=== PATIENT | female | born 1985 | race Caucasian/White ===

== ENCOUNTER 2020-02-24 06:12 | Day surgery (SDC) | payer OTHER ==
[2020-02-24] MEDS ORDERED: Lidocaine 1% with EPINEPHrine 1:100,000 50 ML MDV ONE (06:36)
[2020-02-24] MEDS ORDERED: Bupivacaine 0.5% 50 ML MDV ONE (06:36)
[2020-02-24] MEDS ORDERED: Sodium Chloride 0.9% 1,000 ML IV SCH (07:00)
[2020-02-24] MEDS ORDERED: fentaNYL 250 MCG/5 ML SDV ONE ×3 (07:27→10:52)
[2020-02-24] MEDS ORDERED: Ondansetron 4 MG/2 ML SDV ONE (07:28)
[2020-02-24] MEDS ORDERED: Rocuronium 50 MG/5 ML Vial ONE (07:28)
[2020-02-24] MEDS ORDERED: Propofol 200 MG/20 ML SDV ONE (07:28)
[2020-02-24] MEDS ORDERED: Dexamethasone 4 MG/ML SDV ONE (07:28)
[2020-02-24] MEDS ORDERED: Neostigmine Methylsulfate 1 MG/ML 5 ML Syringe ONE (07:28)
[2020-02-24] MEDS ORDERED: Glycopyrrolate 0.2 MG/ML 5 ML MDV ONE (07:28)
[2020-02-24] MEDS ORDERED: Scopolamine 1.5 MG Transdermal Patch TOP ONE (07:30)
[2020-02-24] MEDS ORDERED: ceFAZolin 2 GM in Sodium Chloride 0.9% 100 ML IV ONE (07:30)
[2020-02-24] MEDS ORDERED: metroNIDAZOLE/Normal Saline 500 MG in Premix Bag 1 BAG IV ONE (07:30)
[2020-02-24] MEDS ORDERED: ceFAZolin 2 GM in Premix Bag 1 BAG IV ONE (07:30)
[2020-02-24] MEDS ORDERED: Ketorolac 60 MG/2 ML SDV ONE (08:46)
[2020-02-24] MEDS ORDERED: Acetaminophen/HYDROcodone 325-5 MG Tab PO PRN (08:49)
[2020-02-24] MEDS ORDERED: Benzocaine/Cetylpyridinium/Menthol Lozenge MUCMEM PRN (08:49)
[2020-02-24] MEDS ORDERED: hydrOXYzine HCL 100 MG/2 ML SDV IM PRN (08:49)
[2020-02-24] MEDS ORDERED: Zolpidem 5 MG Tab PO PRN (08:49)
[2020-02-24] MEDS ORDERED: Docusate Sodium 100 MG Cap PO PRN (08:49)
[2020-02-24] MEDS ORDERED: hydrOXYzine HCL 100 MG/2 ML SDV IM ONE (09:15)
--- NOTE | 2020-02-24 15:04 | OR ---
DATE OF PROCEDURE: 02/24/2020 SURGEON: Andre Nelson MD PROCEDURE: Cholecystectomy. COMPLICATIONS: None. ASSISTANT PARALEGAL: None. ANESTHESIA: General. RISKS: Risks, benefits, alternatives, and limitations including, but not limited to infection, bleeding, and injury to abdominal structures, cystic duct leaks, common bile duct injuries and other risks not listed here were explained to the patient and wished to proceed. PROCEDURE IN DETAIL: The patient was placed in supine position. A supraumbilical curvilinear incision was made. A Veress needle was used to enter the abdomen without abnormality. A drop test was performed without abnormality. Two additional 5s and a 10 mm port were entered under direct visualization. The gallbladder was retracted cephalad. The infundibulum was retracted inferolaterally. Using blunt dissection, a "clear view" of the gallbladder was obtained with a single pulsatile structure in the gallbladder and a single non-pulsatile structure in the gallbladder. The gallbladder was clipped. The duct and artery were subsequently clipped x3 and transected. The remaining gallbladder was removed off the gallbladder bed using electrocautery. Pressure was dropped to 7. No abnormal bleeding was noted. 1 L of irrigation was used to irrigate the abdomen. Area was inspected for enterotomy injury or other pathology. None was noted. The fluid was removed in the pelvis. The ports were closed with 3-0 Vicryl and 4-0 Vicryl in interrupted running fashion. Dermabond was applied. The patient tolerated the procedure well. Andre Nelson MD /[id number]
--- NOTE | 2020-02-25 13:12 | OR ---
DATE OF PROCEDURE: 02/24/2020 SURGEON: Andre Nelson MD PROCEDURE: Bilateral transversus abdominis plane blocks. COMPLICATION: None. MANUAL MACHINIST: None. RISKS: Risks, benefits, alternatives, limitations including but not limited to infection, bleeding, and injury to abdominal structures were explained to the patient. PROCEDURE IN DETAIL: The patient was placed in supine position. Transversus plane was identified on the left and using a 13 megahertz ultrasound probe, the left side was identified first, 80% of the solution was injected. The right side was then performed in a same manner, same fashion, same technique all under direct visualization. The patient tolerated the procedure well. Andre Nelson MD /[id number]
== END 2020-02-24 16:15 | disposition home or self-care (01) ==
LOC: JP.SDS 06:12
PROVIDERS: ATTEND Surgery
DX: K81.1 Chronic cholecystitis (principal); Z79.899 Other long term (current) drug therapy
CPT/HCPCS: 47562; 81025; 88304; A9270; J0171; J0690; J1100; J1790; J1885; J2405; J2704; J2710; J2795; J3010; J3410; J3490; J7030